=== PATIENT | female | born 1990 | race Caucasian/White ===

== ENCOUNTER 2016-11-15 15:24 | Emergency (ER) | payer OTHER ==
[2016-11-15 15:42] VITALS: BP 127/70
[2016-11-15] MEDS ORDERED: prenatal vit PO (16:15)
== END 2016-11-15 16:03 | disposition admitted as inpatient to this hospital (09) ==
LOC: EDBD 15:24 → M ED 15:24
DX: O9A.219 Injury, poisoning and certain other consequences of external causes complicating pregnancy, unspecified trimester (principal); R10.9 Unspecified abdominal pain; V40.5XXA Car driver injured in collision with pedestrian or animal in traffic accident, initial encounter; Y92.410 Unspecified street and highway as the place of occurrence of the external cause; Z3A.00 Weeks of gestation of pregnancy not specified

== ENCOUNTER 2016-11-15 16:19 | Outpatient (CLI) | payer OTHER ==
[~2016-11-15] VITALS: Ht 160 cm; Wt 150.0 kg
[~2016-11-15 16:19] MED LIST: prenatal vit PO
[2016-11-15 16:48] VITALS: BP 133/85
== END 2016-11-15 16:55 | disposition home or self-care (01) ==
LOC: M LDO 16:19
PROVIDERS: ATTEND Obstetrics & Gynecology
DX: O99.89 Other specified diseases and conditions complicating pregnancy, childbirth and the puerperium (principal); V41 Car occupant injured in collision with pedal cycle; Z3A.20 20 weeks gestation of pregnancy

== ENCOUNTER 2017-03-23 06:47 | Inpatient (IN) | payer OTHER ==
[2017-03-23] MEDS: CEFAZOLIN SOD 1 GM in APPROPRIATE DILUENT 1 EA IV ×2 (07:30→17:26)
[2017-03-23] MEDS ORDERED: LR 1,000 ML IV (07:30)
[2017-03-23] MEDS: LR 1,000 ML IV ×4 (07:30→19:55)
[2017-03-23 07:41] LABS: HEMATOCRIT 38.4 % (36.0-47.0); HEMOGLOBIN 12.7 g/dl (12.0-16.0); MEAN CORPUSCULAR HEMOGLOBIN 28.6 pg (27.0-33.0); MEAN CORPUSCULAR HGB CONC 33.1 g/dl (32.0-36.5); MEAN CORPUSCULAR VOLUME 86.5 fl (80.0-96.0); PLATELET COUNT, AUTOMATED 307 10^3/uL (150-450); RED BLOOD COUNT 4.44 10^6/uL (4.00-5.40); RED CELL DISTRIBUTION WIDTH 18.5 % (11.5-14.5); WHITE BLOOD COUNT 9.9 10^3/uL (4.0-10.0)
[2017-03-23] MEDS ORDERED: MORPHINE PRES-FREE INJ 10 MG/10 ML VIAL (J2274) As Ordered (08:12)
[2017-03-23] MEDS ORDERED: ePHEDrine INJ 50 MG/ML VIAL As Ordered (08:13)
[2017-03-23] MEDS: BICITRA 30ML SOLN UDC PO (08:23)
[2017-03-23] MEDS ORDERED: METOCLOPRAMIDE INJ 10MG/2ML VIAL (J2765) IV ×2 (08:39→10:30)
[2017-03-23] MEDS ORDERED: NALOXONE INJ 0.4 MG/1 ML VIAL (J2310) IV ×2 (08:39)
[2017-03-23] MEDS ORDERED: ONDANSETRON 4MG/2ML VIAL (J2405) IV ×2 (08:39→10:45)
[2017-03-23] MEDS ORDERED: NALBUPHINE HCL 10 MG/ML AMP (J2300) IV ×2 (08:39→10:45)
[2017-03-23] MEDS ORDERED: dexameTHASONE 4 MG/ML 1ML VIAL (J1100) As Ordered (08:58)
[2017-03-23] MEDS ORDERED: ONDANSETRON 4MG/2ML VIAL (J2405) As Ordered ×2 (08:58→09:38)
[2017-03-23] MEDS ORDERED: PHENYLephrine HCL 500 MCG/5 ML (100MCG/ML) SYRINGE (J2370) As Ordered ×2 (08:59→09:36)
[2017-03-23] MEDS: KETOROLAC 30 MG/ML VIAL (J1885) IV ×3 (10:49→23:00)
[2017-03-23] MEDS: fentaNYL 100 MCG/2 ML INJECTION (J3010) IV (11:06)
[2017-03-23] MEDS ORDERED: ENOXAPARIN 80 MG/0.8 ML SYRINGE (J1650) SC (16:00)
[2017-03-23] MEDS: ENOXAPARIN 80 MG/0.8 ML SYRINGE (J1650) SQ (16:06)
[2017-03-23] MEDS: DOCUSATE SODIUM 100 MG CAP PO (20:46)
[2017-03-24] MEDS: CEFAZOLIN SOD 1 GM in APPROPRIATE DILUENT 1 EA IV ×2 (01:11→09:00)
[2017-03-24] MEDS: KETOROLAC 30 MG/ML VIAL (J1885) IV (05:15)
[2017-03-24] MEDS: PERCOCET 5MG/325MG TAB PO ×4 (05:55→20:04)
[2017-03-24 06:43] LABS: HEMATOCRIT 31.8 % (36.0-47.0); MEAN CORPUSCULAR HGB CONC 32.7 g/dl (32.0-36.5); MEAN CORPUSCULAR VOLUME 88.6 fl (80.0-96.0); PLATELET COUNT, AUTOMATED 251 10^3/uL (150-450); RED BLOOD COUNT 3.59 10^6/uL (4.00-5.40); RED CELL DISTRIBUTION WIDTH 18.9 % (11.5-14.5); WHITE BLOOD COUNT 11.5 10^3/uL (4.0-10.0)
[2017-03-24 06:46] LABS: HEMOGLOBIN 10.4 g/dl (12.0-16.0)
[2017-03-24] MEDS: PRENATAL VITAMINS CHEWABLE TABLET PO (09:00)
[2017-03-24] MEDS: DOCUSATE SODIUM 100 MG CAP PO ×2 (09:00→21:27)
[2017-03-24] MEDS: IBUPROFEN 800 MG TAB PO ×2 (13:00→21:27)
[2017-03-24] MEDS: ENOXAPARIN 80 MG/0.8 ML SYRINGE (J1650) SQ (16:03)
[2017-03-24] MEDS: MEASLES,MUMPS,RUBELLA VACCINE INJ (MMR-II) (90707) SC (19:43)
[2017-03-24] MEDS: RHOGAM 300 MCG (1500 IU) INJ (J2790) IM (19:43)
[2017-03-25] MEDS: PERCOCET 5MG/325MG TAB PO ×4 (00:08→12:28)
[2017-03-25] MEDS: IBUPROFEN 800 MG TAB PO ×2 (04:14→12:27)
[2017-03-25] MEDS: PRENATAL VITAMINS CHEWABLE TABLET PO (08:20)
[2017-03-25] MEDS: DOCUSATE SODIUM 100 MG CAP PO (08:20)
== END 2017-03-25 12:40 | disposition home or self-care (01) | DRG 765 ==
LOC: M LDI 06:47 → M OBS 11:48
PROVIDERS: Obstetrics & Gynecology
PROC: 10D00Z1 Extraction of Products of Conception, Low, Open Approach (ICD-10-PCS; principal; 2017-03-23 08:30)
DX: O34.211 Maternal care for low transverse scar from previous cesarean delivery (principal); Z68.43 Body mass index [BMI] 50.0-59.9, adult; O99.214 Obesity complicating childbirth; E66.01 Morbid (severe) obesity due to excess calories; Z37.0 Single live birth; Z3A.39 39 weeks gestation of pregnancy

== ENCOUNTER → 2018-02-07 | Outpatient (REF) | payer OTHER | LOC: M SFHCLERA 14:47 | DX: R39.9 Unspecified symptoms and signs involving the genitourinary system (principal) | CPT/HCPCS: 87186 ==